=== PATIENT | female | born 1990 | race African-American/Black ===

== ENCOUNTER 2018-11-24 14:58 | Emergency (ER) | payer MEDICAID, MEDICARE ==
[~2018-11-24] VITALS: Ht 170.2 cm; Wt 88.0 kg
[2018-11-24 15:19] VITALS: BP 149/83
[2018-11-24] MEDS ORDERED: BACITRACIN ZINC OINT UDPKT TOP ONE (16:15)
== END 2018-11-24 16:29 | disposition home or self-care (01) ==
LOC: ER 14:58
DX: T25.211A Burn of second degree of right ankle, initial encounter (principal); F12.10 Cannabis abuse, uncomplicated; F17.210 Nicotine dependence, cigarettes, uncomplicated; Z20.2 Contact with and (suspected) exposure to infections with a predominantly sexual mode of transmission; Z98.890 Other specified postprocedural states; X08.8XXA Exposure to other specified smoke, fire and flames, initial encounter; Y93.89 Activity, other specified; Y92.89 Other specified places as the place of occurrence of the external cause
CPT/HCPCS: 99283